=== PATIENT | male | born 1955 | race Caucasian/White ===

== ENCOUNTER 2025-01-28 01:04 | Emergency (ER) | payer MEDICARE, SELFPAY ==
[2025-01-28 01:13] VITALS: BP 133/87; PULSE 98; RESP 18; TEMP 36.7; O2SAT 96; BMI 26.1
[2025-01-28] MEDS: 0.9% Normal Saline (1000mL) 1,000 ML 999 ML IV (01:45)
[2025-01-28 01:51] LABS: Hematocrit 36.6 % (40-54); Hemoglobin 12.2 g/dL (13.0-16.5); Immature Granulocytes Count 0.370 X10^3/uL (0.0-0.0); Mean Corp Hgb Conc 33.3 g/dL (32-36); Mean Corpuscular Volume 89.3 fL (80-94); Mean Platelet Vol. 9.2 fl (6.2-12.0); NRBC Flagged by Analyzer 0 % (0-5); Platelet Count 355 K/mm3 (150-450); RBC Distribution Width CV 13.5 % (11.6-14.6); RBC Distribution Width SD 43.8 fl (35.1-43.9); Red Blood Count 4.10 M/mm3 (4.6-6.2); White Blood Count 8.8 K/mm3 (4.4-11.0)
--- NOTE | 2025-01-28 01:51 | CT_ITS ---
PROCEDURE: ABDOMEN/PELVIS W IV CONT ONLY 01/28/2025 REASON FOR EXAM: PROSTATECTOMY 9 DAYS AGO, BLEEDING TECHNIQUE: Procedure Code: [id number] Modality: CT Procedure: ABDOMEN/PELVIS W IV CONT ONLY Coronal and Sagittal reconstruction series were provided. CONTRAST: OMNIPAQUE 350 VOLUME: 100 mL One or more dose reduction techniques were used (e.g., Automated exposure control, adjustment of the mA and/or kV according to patient size, use of iterative reconstruction technique. RADIATION DOSE SUMMARY: CTDlvol: 16.69 mGy DLP: 1041 mGycm COMPARISON: None. FINDINGS: Bilateral basilar atelectatic pulmonary changes. Status post radical prostatectomy. Right obturator chain seroma measuring 7.6 x 2.8 cm. Left obturator chain seroma measuring 8.3 x 2.9 cm. Smaller seromas are noted in the iliac chains, probably secondary to recent lymph node dissection. Mild amount of free fluid in the pelvic extraperitoneal space. No loculated hematoma is identified. No CT evidence of active bleeding during the time of the exam. Inguinal soft tissue emphysema, probably benign finding secondary to recent intervention. Small sliding hiatal hernia. Left renal simple cyst measuring 5 cm. Supraumbilical anterior abdominal wall subcutaneous seroma measuring 2 cm. Soft tissue emphysema of the anterior abdominal wall, probably recent intervention. Diffuse thickening of the bladder, probably underdistention. Mild bilateral fullness of the collecting systems, probably reflux. Moderate amount of fecal residue in the large bowels. Moderate diffuse spondylosis. Normal liver. Normal gallbladder and extrahepatic biliary system. Normal spleen. Normal pancreas. Normal bilateral adrenal glands. Normal size of the right kidney. There is no right renal mass. There are no right renal calculi. There is no right hydronephrosis. Normal visualized right ureter. Normal size of the left kidney. There is no left renal mass. There are no left renal calculi. There is no left hydronephrosis. Normal visualized left ureter. Normal visualized stomach. Normal small intestine. Normal colon. The appendix is visualized and appears normal. Normal abdominal aorta. Normal inferior vena cava. There is no pelvic mass lesion or lymphadenopathy. CT/Abdomen/Pelvis W IV Cont ONLY IMPRESSION: Bilateral basilar atelectatic pulmonary changes. Status post radical prostatectomy. Right obturator chain seroma measuring 7.6 x 2.8 cm. Left obturator chain seroma measuring 8.3 x 2.9 cm. Smaller seromas are noted in the iliac chains, probably secondary to recent lym ph node dissection. Mild amount of free fluid in the pelvic extraperitoneal space. No loculated hematoma is identified. No CT evidence of active bleeding during the time of the exam. Inguinal soft tissue emphysema, probably benign finding secondary to recent int ervention. Small sliding hiatal hernia. Left renal simple cyst measuring 5 cm. Supraumbilical anterior abdominal wall subcutaneous seroma measuring 2 cm. Soft tissue emphysema of the anterior abdominal wall, probably recent intervent ion. Diffuse thickening of the bladder, probably underdistention. Mild bilateral fullness of the collecting systems, probably reflux. Moderate amount of fecal residue in the large bowels. Moderate diffuse spondylosis. Reading Location: [facility]
--- NOTE | 2025-01-28 02:02 | EDS_ITS ---
HPI History of Present Illness Chief Complaint: Complaint Narrative Narrative: Patient is a 69-year-old male with past medical history of CVA, diabetes, hypertension who presents to the emergency department with chief complaint of urinating blood. He states about 9 days ago he had a prostatectomy at the [facility]3] by Dr. Kauffman and states that tonight around midnight he started urinating blood and notes that he has pressure in his rectum he was concerned therefore he came here further evaluation management. Patient states that he is on Lovenox as his doctor put him on this and is to remain on this for approximately 27 days postoperatively states that he is also on aspirin and takes a natural anticoagulant as well. Patient states that has had chills and nausea but no vomiting. Patient denies any sick contacts. [facility] Medical History Diabetes HTN (hypertension) CVA (cerebral vascular accident) Home Medications Medication Instructions Recorded Last Taken Type aspirin 81 mg tablet,delayed 81 mg PO DAILY 01/28/25 U nknown History release benazepril 40 mg tablet 40 mg PO DAILY 01/28/25 Unkn own History enoxaparin 40 mg/0.4 mL 40 mg subcut Q24H 01/28/25 U nknown History subcutaneous syringe ertugliflozin 15 mg-sitagliptin 1 tab PO DAILY 5 Unknown History phosphate 100 mg tablet (Steglujan) ezetimibe 10 mg tablet 10 mg PO DAILY 01/28/25 Unkn own History glipizide 5 mg tablet, extended 5 mg PO DAILY 01/28/25 Unknown History release 24 hr tadalafil 5 mg tablet 5 mg PO DAILY PRN sexual act ivity 01/28/25 Unknown History Allergy/AdvReac Type Severity Reaction Status Date / Time Penicillins AdvReac Intermediate Rash Verified 01/28/25 01:12 acetaminophen (From Vicodin) AdvReac Mild halluucinat Verified 01/28/25 01:12 ion hydrocodone (From Vicodin) AdvReac Mild halluucinat Verified 01/28/25 01:12 ion Surgical History History of back surgery H/O prostatectomy Social History Smoking Status: Never smoker ROS ROS ED ROS Narrative Constitutional: Complains of chills as noted above denies fever, headaches Abdomen: Complains of nausea as noted above denies vomiting or diarrhea complains of some abdominal discomfort : Complains of hematuria as noted above Neurological: Denies numbness, weakness, tingling Musculoskeletal: Denies back pain Skin: Denies any rashes or lesions EXAM Physical Exam Narrative Exam Narrative: General: Patient lying in bed rest comfortably did not appear to be in acute distress Head: Atraumatic, normocephalic Eyes: PERRL bilaterally, EOMI bilaterally, no conjunctival injection noted Neck: Soft, supple, trachea midline Cardiovascular: Regular rate and rhythm Respiratory: Clear to auscultation bilaterally Abdomen: Soft, nondistended, diffuse tenderness palpation no rebound or guarding exam Extremities: +5/5 strength noted in the bilateral lower extremities, radial pulses +2/4 and about extremities, no pedal edema on exam Neurological: Patient followed commands and that he was at [facility] year is 2024 Skin: Warm, dry, surgical incisions are well-healing no concern for infection at this point in time Const Vital Signs: 01/28/25 01:13 01/28/25 03:43 Temperature 98.1 F 98.1 F Temperature Source Oral Pulse Rate 98 81 Respiratory Rate 18 17 Blood Pressure 133/87 H 159/83 H Blood Pressure Mean 102 108 Pulse Ox 96 96 Oxygen Delivery Method Room Air MDM MDM MDM Narrative Medical decision making narrative: Patient is a 69-year-old male who presents to the emergency department the chief complaint of hematuria after prostatectomy about 9 days ago. On the differential diagnose includes but not limited to UTI, pyelonephritis, abscess, retroperitoneal hematoma. Once workup is obtained reviewed he will be reevaluated. Patient CBC reviewed showed no evidence leukocytosis white blood count normal 8.8, hemoglobin 12.2, platelet count 355. Patient sodium normal 134, potassium 4.4, creatinine 0.91. Patient AST and ALT were 20 and 46 respectively. Patient urinalysis did show blood however no evidence of infection negative nitrites negative leukocyte esterase 0-5 white cells 1+ bacteria. Patient's CT ab pelvis with IV contrast reviewed which showed Bilateral basilar atelectatic pulmonary changes. Status post radical prostatectomy. Right obturator chain seroma measuring 7.6 x 2.8 cm. Left obturator chain seroma measuring 8.3 x 2.9 cm. Smaller seromas are noted in the iliac chains, probably secondary to recent lymph node dissection. Mild amount of free fluid in the pelvic extraperitoneal space. No loculated hematoma is identified. No CT evidence of active bleeding during the time of the exam. Inguinal soft tissue emphysema, probably benign finding secondary to recent intervention. Small sliding hiatal hernia. Left renal simple cyst measuring 5 cm. Supraumbilical anterior abdominal wall subcutaneous seroma measuring 2 cm. Soft tissue emphysema of the anterior abdominal wall, probably recent intervention. Diffuse thickening of the bladder, probably underdistention. Mild bilateral fullness of the collecting systems, probably reflux. Moderate amount of fecal residue in the large bowels. Moderate diffuse spondylosis. Call down to [facility] and spoke with on-call urology Dr. Castillo who states these are postsurgical changes and nothing further needs to be done he can follow-up with Dr. Kauffman in the outpatient setting. Discussed this plan with the patient he was advised to follow-up with his urologist outpatient setting return with worsening symptoms or concerns. He is agreeable to plan all course concerns answered discharged home in stable condition. Lab Data Labs: Laboratory Results - last 24 hr 01/28/25 01/28/25 01:45 03:00 WBC 8.8 RBC 4.10 L Hgb 12.2 L Hct 36.6 L MCV 89.3 MCH 29.8 MCHC 33.3 RDW Std Deviation 43.8 RDW Coeff of Sarkis 13.5 Plt Count 355 MPV 9.2 Immature Gran % (Auto) 4.200 H Neut % (Auto) 61.1 Lymph % (Auto) 18.8 L [place] % (Auto) 9.8 Eos % (Auto) 5.3 H Baso % (Auto) 0.8 Absolute Neuts (auto) 5.4 Absolute Lymphs (auto) 1.66 Nucleated RBC % 0 Sodium 134 Potassium 4.4 Chloride 101 Carbon Dioxide 20.4 L Anion Gap 13 BUN 18 Creatinine 0.91 Estim Creat Clear Calc 74.12 Est GFR (MDRD) Non-Af 91 BUN/Creatinine Ratio 20.0 Glucose 241 H Calcium 9.0 Total Bilirubin 0.47 AST 28 ALT 46 Alkaline Phosphatase 71 Total Protein 7.0 Albumin 3.8 Globulin 3.2 Albumin/Globulin Ratio 1.2 Urine Color Yellow Urine Clarity Sl. Cloudy Urine pH 6.0 Ur Specific Ruby 1.015 Urine Protein 30 H Urine Glucose (UA) 1000 H Urine Ketones Negative Urine Occult Blood 250 H Urine Nitrite Negative Urine Bilirubin Negative Urine Urobilinogen Normal Ur Leukocyte Esterase Negative Urine RBC > 100 SEEN Urine WBC 0-5 SEEN Ur Squamous Epith Cells 0 SEEN Urine Bacteria 1+ Urine Mucus 0 SEEN Radiography Diagnostic Testing: Clinical Impression(s) from Imaging Studies Abdomen/Pelvis CT 01/28/25 01:51 IMPRESSION: Bilateral basilar atelectatic pulmonary changes. Status post radical prostatectomy. Right obturator chain seroma measuring 7.6 x 2.8 cm. Left obturator chain seroma measuring 8.3 x 2.9 cm. Smaller seromas are noted in the iliac chains, probably secondary to recent lymph node dissection. Mild amount of free fluid in the pelvic extraperitoneal space. No loculated hematoma is identified. No CT evidence of active bleeding during the time of the exam. Inguinal soft tissue emphysema, probably benign finding secondary to recent intervention. Small sliding hiatal hernia. Left renal simple cyst measuring 5 cm. Supraumbilical anterior abdominal wall subcutaneous seroma measuring 2 cm. Soft tissue emphysema of the anterior abdominal wall, probably recent intervention. Diffuse thickening of the bladder, probably underdistention. Mild bilateral fullness of the collecting systems, probably reflux. Moderate amount of fecal residue in the large bowels. Moderate diffuse spondylosis. Reading Location: [place] [id number] Discharge Plan Triage Chief Complaint: Complaint ED Provider: Waqar Daily Dx/Rx/DC Orders Clinical Impression: Status post prostatectomy, Hematuria, Hypertension Prescriptions: No Action aspirin 81 mg tablet,delayed release (DR/EC) 81 mg PO DAILY enoxaparin 40 mg/0.4 mL syringe 40 mg subcut Q24H Steglujan 15-100 mg tablet 1 tab PO DAILY glipizide 5 mg tablet extended release 24hr 5 mg PO DAILY ezetimibe 10 mg tablet 10 mg PO DAILY tadalafil 5 mg tablet 5 mg PO DAILY PRN (Reason: sexual activity) benazepril 40 mg tablet 40 mg PO DAILY Primary Care Provider: PERLA ARNOLD Referrals: PERLA ARNOLD [Other] Activity Restrictions/Additional Instructions: Follow-up with your urologist in the outpatient setting. Your blood work did not show any acute findings here your urine did not show any evidence of infection and your CT showed postsurgical changes no acute infection. Print Language: Malay Disposition Disposition: Home, Self Care
[2025-01-28 02:07] LABS: AST(SGOT) 28 U/L (<=37); Alanine Aminotransfer ALT/SGPT 46 U/L (<=46); Albumin, Serum 3.8 g/dL (3.4-4.8); Alkaline Phosphatase 71 U/L (40-129); Anion Gap 13 (5-15); BUN 18 mg/dL (4-19); BUN/Creat Ratio 20.0 RATIO (10-20); Calcium,Total 9.0 mg/dL (7.6-11.0); Carbon Dioxide 20.4 mmol/L (21.0-32.0); Chloride 101 mmol/L (98-108); Estimated Creatinine Clearance 74.12 ml/min (50-250); Globulin 3.2 g/dL (2.2-4.2); Glucose 241 mg/dL (70-99); Potassium 4.4 mmol/L (3.3-5.1)
[2025-01-28 03:07] LABS: Mucous, Urine 0 SEEN /hpf (<or=2+); Squamous Epithelial Cells - UA 0 SEEN /hpf (0-5)
[2025-01-28 03:08] LABS: Color, Urine Yellow (Yellow); Glucose, Dipstick 1000 mg/dl (Normal); Ketone-Dipstick Negative (Negative); Leukocyte Esterase-Dipstick Negative /ul (Negative); Nitrite-Dipstick Negative (Negative); Occult Blood-Urine 250 /ul (Negative); Protein-Dipstick 30 mg/dl (Negative); Specific Gravity, Urine 1.015 (1.002-1.030); Urine Bilirubin Dipstick Negative (Negative)
[2025-01-28 03:13] LABS: Red Blood Cells-Urine > 100 SEEN /hpf (0-5)
[2025-01-28 03:43] VITALS: BP 159/83; PULSE 81; RESP 17; TEMP 36.7; O2SAT 96
== END 2025-01-28 04:02 | disposition home or self-care (01) ==
PROVIDERS: Emergency Provider Emergency Medicine; Visit Provider Emergency Medicine
DX: R31.9 Hematuria, unspecified (principal); E11.9 Type 2 diabetes mellitus without complications; K44.9 Diaphragmatic hernia without obstruction or gangrene; I10 Essential (primary) hypertension; J98.11 Atelectasis; N28.1 Cyst of kidney, acquired; N32.89 Other specified disorders of bladder; Z86.73 Personal history of transient ischemic attack (TIA), and cerebral infarction without residual deficits
CPT/HCPCS: 74177; 80053; 81001; 85025; 90471; 96360; 96361; 99283; Q9967; A4216